=== PATIENT | female | born 1965 | race Hispanic/Latino ===

== ENCOUNTER 2024-03-08 17:58 | Emergency (ER) | payer BC ==
[~2024-03-08] VITALS: Ht 157.5 cm; Wt 80.3 kg
[2024-03-08 18:41] LABS: BASOPHILS # (AUTO) 0.08 K/uL (0.00-0.20); BASOPHILS % (AUTO) 1.3 % (0.0-5.0); EOSINOPHILS # (AUTO) 0.46 K/uL (0.00-0.70); EOSINOPHILS % (AUTO) 7.7 % (0.0-8.0); IMMATURE GRANULOCYTE ABSOLUTE 0.04 K/uL (0-1); LYMPHOCYTES % (AUTO) 33.4 % (21.0-51.0); MEAN CORPUSCULAR HEMOGLOBIN 28.8 pg (27.0-33.0); MEAN CORPUSCULAR HGB CONC 33.7 g/dL (32.0-36.0); MEAN CORPUSCULAR VOLUME 85.6 fL (79-99); MONOCYTES # (AUTO) 0.5 K/uL (0.1-1.0); NEUTROPHILS # (AUTO) 2.9 K/uL (1.8-7.7); NEUTROPHILS % (AUTO) 47.9 % (40.0-77.0); PLATELET COUNT (AUTO) 284 K/uL (130-400); RED BLOOD CELL COUNT(AUTO) 4.44 MIL/uL (4.00-5.50); RED CELL DISTRIBUTION WIDTH 12.8 % (11.0-15.5)
[2024-03-08 18:52] LABS: CREATININE 0.9 mg/dL (0.5-1.0)
[2024-03-08] MEDS: KETOROLAC 30MG VIAL (30MG/ML) IVP ONE (18:57)
[2024-03-08] MEDS: SOLU-MEDROL 125MG VIAL IVP ONE (18:57)
[2024-03-08] MEDS ORDERED: METH4TAB3 PO (20:21)
[2024-03-08] MEDS ORDERED: IBUP-2077 PO (20:21)
[2024-03-08 20:35] VITALS: BP 116/65; PULSE 57; RESP 17; O2SAT 96
== END 2024-03-08 20:48 | disposition home or self-care (01) ==
LOC: EDH 17:58
DX: M75.52 Bursitis of left shoulder (principal); E78.00 Pure hypercholesterolemia, unspecified; Z88.0 Allergy status to penicillin; Z79.899 Other long term (current) drug therapy; Z90.49 Acquired absence of other specified parts of digestive tract; Z90.710 Acquired absence of both cervix and uterus; Z98.890 Other specified postprocedural states
CPT/HCPCS: 99284; 96374; 71045; 96375; 84484; 80048; 85025; 36415; 73030; 93005; J2919; J1885